=== PATIENT | female | born 1940 | race Caucasian/White ===

== ENCOUNTER 2016-07-28 12:57 | Outpatient (CLI) | payer MEDICARE, OTHER | END 2016-07-28 12:58 | disposition home or self-care (01) | DX: Z12.31 Encounter for screening mammogram for malignant neoplasm of breast (principal); Z80.3 Family history of malignant neoplasm of breast ==

== ENCOUNTER 2016-11-06 12:25 | Observation (INO) | payer MEDICARE, OTHER ==
--- NOTE | 2016-11-06 13:08 | ED Physician Documentation ---
PD HPI FOCAL NEURO - Stated complaint Stated Complaint: SPEECH DIFFICULTY - Chief complaint Chief Complaint: Neuro - History obtained from History obtained from: Patient, Family - History of Present Illness Timing - onset: How many hours ago (1) Timing - duration: Minutes (20) Timing - details: Abrupt onset Severity of deficit: Moderate Weakness: No: Face, Arm, Hand, Leg, Foot, Right, Left Numbness: No: Face, Arm, Hand, Leg, Foot, Right, Left Associated symptoms: No: Headache, Nausea / vomiting, Seizure, Syncope, Fall, Head injury, Chest pain, Neck pain, Back pain, Fever Contributing factors: positive: Anticoagulated (plavix) Baseline status: positive: A&OX3, ambulatory, indep Similar symptoms before: Has not had sx before Recently seen: Not recently seen - Additional information Additional information: difficulty with speech x 20 mins today. Now resolved. H/o CVA in the past. Review of Systems Ten Systems: 10 systems reviewed and negative Constitutional: denies: Fever, Chills Eyes: denies: Decreased vision, Photophobia Ears: denies: Ear pain Nose: denies: Rhinorrhea / runny nose, Congestion Cardiac: denies: Chest pain / pressure, Palpitations Respiratory: denies: Dyspnea, Cough, Wheezing GI: denies: Abdominal Pain, Nausea, Vomiting, Diarrhea Skin: denies: Rash Musculoskeletal: denies: Neck pain, Back pain Neurologic: reports: Difficulty speaking. 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 - Present Medications Home Medications: Ambulatory Orders Medication Instructions Recorded Confirmed Lisinopril 20 mg PO DAILY 09/26/15 11/06/16 Aspirin [Aspirin EC] 81 mg PO DAILY 11/06/16 11/06/16 Atorvastatin [Lipitor] 10 mg PO QPM 11/06/16 11/06/16 Brimonidine 0.1% Ophth Drops 1 drops LEFTEYE BID 11/06/16 11/06/16 [Alphagan P 0.1% Ophth Drops] Clopidogrel [Plavix] 75 mg PO DAILY 11/06/16 11/06/16 Dorzolamide 2% Ophth Drops 1 drops LEFTEYE BID 11/06/16 11/06/16 [Trusopt 2% Ophth Drops] Latanoprost 0.005% Ophth Drops 1 drops LEFTEYE QPM 11/06/16 11/06/16 [Xalatan Ophth Drops] Levothyroxine Sodium 50 mcg PO DAILY 11/06/16 11/06/16 - Allergies Allergies/Adverse Reactions: Allergies Allergy/AdvReac Type Severity Reaction Status Date / Time No Known Drug Allergies Allergy Verified 11/06/16 12:58 - Social History Does the pt smoke?: No Smoking Status: Never smoker Does the pt drink ETOH?: Yes Does the pt have substance abuse?: No - Immunizations Immunizations are current?: Yes PD ED PE NORMAL - Vitals Vital signs reviewed: Yes - General General: Alert and oriented X 3, No acute distress, Well developed/nourished - HEENT HEENT: PERRL, EOMI, Ears normal, Moist mucous membranes, Pharynx benign - Neck Neck: Supple, no meningeal sign, No bruit - Cardiac Cardiac: RRR, Strong equal pulses - Respiratory Respiratory: No respiratory distress, Clear bilaterally - Abdomen Abdomen: Soft, Non tender, Non distended - Back Back: No spinal TTP - Derm Derm: Warm and dry, No rash - Extremities Extremities: No edema, No calf tenderness / cord - Neuro Neuro: Alert and oriented X 3, tube builder 2-12 intact, No motor deficit, No sensory deficit - Psych Psych: Normal mood, Normal affect NIHSS - Time Time: 13:00 - Level of Consciousness Level of consciousness: (0) Alert, Keenly responsive LOC Questions: (0) Answers both Q's correct LOC Commands: (0) Performs both correctly - Gaze Best Gaze: (0) Normal - Visual Visual: (0) No loss - Facial Palsy Facial Palsy: (0) Normal, symmetrical movement - Motor Arms (both separate) Motor Arm (right): (0) No drift Motor Arm (left): (0) No drift - Motor Legs (both separate) Motor Leg (right): (0) No drift Motor Leg (left): (0) No drift - Limb Ataxia Limb Ataxia: (0) Absent - Sensory Sensory: (0) Normal - Best Language Best Language: (0) No aphasia - Dysarthria Dysarthria: (0) Normal - Extinction and Inattention (formally neg Extinction and inattention: (0) No abnormality - Total Score/Results Total Score/Result: 0 Results - Vitals Vitals: Vital Signs - 24 hr 11/06/16 11/06/16 12:30 14:58 Temperature 36.5 C Heart Rate 79 77 Respiratory 17 18 Rate Blood Pressure 168/74 H 157/80 H O2 Saturation 100 99 Oxygen O2 Source Room air - EKG (time done) 1237 Rate: Rate (enter#) (78) Rhythm: NSR [place]: Normal Intervals: Normal GA QRS: Normal Ischemia: Normal ST segments Computer interpretation: Agree with computer - Labs Labs: Laboratory Tests 11/06/16 11/06/16 11/06/16 13:35 13:35 15:05 WBC 7.9 RBC 3.86 L Hgb 12.7 Hct 37.4 MCV 96.9 MCH 33.0 H MCHC 34.0 RDW 12.9 Plt Count 246 MPV 8.2 Neut # 5.5 Lymph # 1.6 [place] # 0.6 Eos # 0.2 Baso # 0.1 Absolute Nucleated RBC 0.00 Nucleated RBCs 0.0 Sodium 141 Potassium 3.6 Chloride 106 Carbon Dioxide 28 Anion Gap 7.0 BUN 19 Creatinine 0.7 Estimated GFR (MDRD) 82 L Glucose 124 H Calcium 9.4 Total Bilirubin 0.7 AST 26 ALT 24 Alkaline Phosphatase 49 Total Protein 6.8 Albumin 4.0 Globulin 2.8 Albumin/Globulin Ratio 1.4 Lipase 27 Urine Color YELLOW Urine Clarity CLEAR Urine pH 5.5 Ur Specific [place] >=1.030 H Urine Protein NEGATIVE Urine Glucose (UA) NEGATIVE Urine Ketones NEGATIVE Urine Occult Blood NEGATIVE Urine Nitrite NEGATIVE Urine Bilirubin NEGATIVE Urine Urobilinogen 0.2 (NORMAL) Ur Leukocyte Esterase NEGATIVE Ur Microscopic Review NOT INDICATED Urine Culture Comments NOT INDICATED - Rads (name of study) head CT Radiology: Prelim report reviewed, EMP read contemporaneously, See rad report ( No clearly acute intracranial CT abnormalities. There is no evidence of hemorrhage or mass effect. No clearly acute loss of montgomery-white matter differentiation. There is a focus of hypodensity within the left external capsule and briseno radiata white matter. This probably represents a remote lacunar infarct. There is a small hyperdensity measuring 0.9 x 0.6 cm within the superomedial right orbital fossa (image 6 series 3). This is suspicious for a small intraconal mass. Most likely etiology would be a hemangioma/ lymphangioma. Non-emergent contrast-enhanced orbital MRI is recommended for further evaluation as indicated. ) PD MEDICAL DECISION MAKING - ED course Complexity details: reviewed results, re-evaluated patient, considered differential, d/w patient, d/w family ED course: Patient is a 75-year-old female who had a 20 minute episode of expressive aphasia today. Symptoms have since resolved. She is neurologically normal and at her baseline. No focal weakness or numbness. Symptoms are consistent with a TIA. No acute findings on laboratory testing or head CT. We will Place her in observation for further evaluation. Discussed the case with the hospitalist , Dr. Sorto, who accepts. This document was made in part using voice recognition software. While efforts are made to proofread this document, sound alike and grammatical errors may occur. Departure - Departure Disposition: ED Place in Observation Clinical Impression: TIA (transient ischemic attack) Qualifiers: Transient cerebral ischemia type: unspecified Qualified Code(s): G45.9 - Transient cerebral ischemic attack, unspecified Condition: Good Discharge Date/Time: 11/06/16 17:16
[2016-11-06 13:46] LABS: BASOPHILS # (AUTO) 0.1 10^3/uL (0.0-0.1); BASOPHILS % (AUTO) 0.8 %; EOSINOPHILS # (AUTO) 0.2 10^3/uL (0.0-0.7); EOSINOPHILS % (AUTO) 2.4 %; HCT - HEMATOCRIT 37.4 % (37.0-47.0); HGB - HEMOGLOBIN 12.7 g/dL (12.0-16.0); LYMPHOCYTES # (AUTO) 1.6 10^3/uL (1.5-3.5); LYMPHOCYTES % (AUTO) 20.3 %; MEAN CORPUSCULAR VOLUME 96.9 fL (81.0-99.0); MEAN PLATELET VOLUME 8.2 fL (7.9-10.8); MONOCYTES # (AUTO) 0.6 10^3/uL (0.0-1.0); MONOCYTES % (AUTO) 7.6 %; NEUTROPHILS # (AUTO) 5.5 10^3/uL (1.5-6.6); NEUTROPHILS % (AUTO) 68.9 %; RED BLOOD COUNT 3.86 10^6/uL (4.20-5.40); RED CELL DISTRIBUTION WIDTH 12.9 % (12.0-15.0); UNCORRECTED WHITE BLOOD COUNT 7.9 x10^3/uL; WHITE BLOOD COUNT 7.9 x10^3/uL (4.8-10.8)
[2016-11-06 14:01] LABS: ALBUMIN/GLOBULIN RATIO 1.4 (1.0-2.2); BILIRUBIN,TOTAL 0.7 mg/dL (0.2-1.0); CALCIUM 9.4 mg/dL (8.5-10.3); CREATININE 0.7 mg/dL (0.4-1.0); POTASSIUM 3.6 mmol/L (3.5-5.0); TOTAL PROTEIN 6.8 g/dL (6.7-8.2)
--- NOTE | 2016-11-06 14:59 | CT Report ---
EXAM: CT HEAD EXAM DATE: 11/06/2016 02:28 PM. CLINICAL HISTORY: Expressive aphasia x 20 mins. COMPARISON: None. TECHNIQUE: Multiaxial CT images were obtained from the foramen magnum to the vertex. IV contrast: Non e. Reformats: Coronal. In accordance with CT protocol optimization, one or more of the following dose reduction techniques w ere utilized for this exam: automated exposure control, adjustment of mA and/or KV based on patient s ize, or use of iterative reconstructive technique. FINDINGS: Parenchyma: There is no evidence of intraparenchymal hemorrhage. There is focal hypodensity within th e left basal ganglia and briseno radiata white matter. This likely represents remote lacunar infarct. There is no clearly acute loss of montgomery-white matter differentiation. No mass effect. No findings susp icious for mass lesion. Extraaxial Spaces: There is mild generalized volume loss. No acute extra-axial collection is seen. Ventricles: Normal in size and position. Sinuses: Imaged paranasal sinuses, orbits, and mastoids show no significant abnormality. Bones: No evidence of fracture or calvarial defect. Other: None. IMPRESSION: 1. No clearly acute intracranial CT abnormalities. There is no evidence of hemorrhage or mass effect. No clearly acute loss of montgomery-white matter differentiation. 2. There is a focus of hypodensity within the left external capsule and briseno radiata white matter. This probably represents a remote lacunar infarct. 3. There is a small hyperdensity measuring 0.9 x 0.6 cm within the superomedial right orbital fossa ( image 6 series 3). This is suspicious for a small intraconal mass. Most likely etiology would be a he mangioma/lymphangioma. Non-emergent contrast-enhanced orbital MRI is recommended for further evaluati on as indicated. [facility] Referring Provider Line: [phone] SITE ID: [id number]
[2016-11-06 16:00] LABS: BILIRUBIN,URINE NEGATIVE (NEGATIVE); PH,URINE 5.5 PH (5.0-7.5)
[2016-11-06 16:03] LABS: UA CHARGE (STRIP ONLY) YES; UR CULTURE IF IND NOT INDICATED
[2016-11-06] MEDS ORDERED: SODIUM CHLORIDE FLUSH 0.9% 10 ML SYRINGE IVP PRN (16:39)
[2016-11-06] MEDS ORDERED: ASPIRIN 325 MG TABLET PO ONE (18:00)
--- NOTE | 2016-11-06 19:23 | MRI Report ---
EXAM: MR ANGIOGRAM NECK EXAM DATE: 11/06/2016 06:15 PM. CLINICAL HISTORY: 75-year-old woman with TIA. COMPARISON: None. TECHNIQUE: Multiplanar, multisequence MRA sequences of the neck were performed. Other: None. Post-pro cessing: Multiplanar 3D MIP reconstructions. IV Contrast: None. Evaluation of arterial stenosis is b ased on a NASCET method of measurement. FINDINGS: RIGHT Common and Internal Carotid: Patent. No dissection or significant stenosis. External Carotid: Patent. No dissection or significant stenosis. Vertebral: Patent, but flow related artifact limits evaluation along the V3 segment on this noncontra st exam. No dissection or significant stenosis. LEFT Common and Internal Carotid: Patent, but irregularity at the bifurcation results in mild luminal narr owing (less than 50% by NASCET criteria). No dissection or hemodynamically significant stenosis. External Carotid: Patent. No dissection or significant stenosis. Vertebral: The origin is not well seen, likely due to artifact but stenosis cannot be excluded. The r emainder of the artery is patent, but flow related artifact limits evaluation along the V3 segment on this noncontrast exam. No dissection or significant stenosis. Other: Limited evaluation of the neck soft tissues is unremarkable. IMPRESSION: 1. Carotid arteries are patent without significant stenosis or dissection. Irregularity at the left c arotid bifurcation likely reflects underlying atherosclerotic disease. 2. The origin of the left vertebral artery is not well visualized, likely due to artifact but underly ing stenosis cannot be excluded. The V3 segments are obscured by flow related artifact. [facility] Referring Provider Line: [phone] SITE ID: [id number]
--- NOTE | 2016-11-06 19:31 | MRI Preliminary Report ---
Exam: MRI Angio Brain W/O (MRA) IMPRESSION: 1. 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 Visualized distal MCA branches are attenuated relative to the right. [facility] The above findings were discussed with Dr. Sorto by Dr. Ángel Crews at 19:29 hrs on 11/06/16. SITE ID: [id number]
--- NOTE | 2016-11-06 19:33 | MRI Report ---
EXAM MRA BRAIN EXAM DATE: 11/06/2016 06:05 PM. CLINICAL HISTORY: 75-year-old woman with TIA. COMPARISON: None. TECHNIQUE: Multiplanar, multisequence MRA sequences of the brain were performed. Other: None. Post-pr ocessing: Multiplanar 3D MIP reconstructions. IV Contrast: None. FINDINGS: RIGHT: Visualized Internal Carotid Artery: Patent without significant stenosis. No evidence of aneurysm. Anterior Cerebral Artery: Patent without significant stenosis or aneurysm. Middle Cerebral Artery: Patent without significant stenosis or aneurysm. Posterior Cerebral Artery: Patent without significant stenosis or aneurysm. The KEEL PRESS OPERATOR supplied by the p osterior communicating artery ( origin) this, a normal variant. Posterior Communicating Artery: Patent. No aneurysm. Visualized Vertebral Artery: Patent without significant stenosis. No evidence of dissection or aneury sm. LEFT: Visualized Internal Carotid Artery: Patent without significant stenosis. No evidence of aneurysm. Anterior Cerebral Artery: Patent without significant stenosis or aneurysm. Middle Cerebral Artery: M1 segment is patent, but there is abrupt truncation of the proximal temporal M2 trunk, consistent with occlusion. Flow in the visualized M2 M3 vessels is attenuated relative to the right. No aneurysm. Posterior Cerebral Artery: Patent without significant stenosis or aneurysm. The KEEL PRESS OPERATOR is primarily supp lied by the posterior communicating artery, but there is a small, patent P1 segment. Posterior Communicating Artery: Patent. No aneurysm. Visualized Vertebral Artery: Patent without significant stenosis. No evidence of dissection or aneury sm. CENTRAL: Anterior Communicating Artery: Patent. No aneurysm. Basilar: Patent without significant stenosis, dissection, or aneurysm. IMPRESSION: 1. 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 Visualized distal MCA branches are attenuated relative to the right. [facility] The above findings were discussed with Dr. Sorto by Dr. Ángel Crews at 19:29 hrs on 11/06/16. Referring Provider Line: [phone] SITE ID: [id number]
--- NOTE | 2016-11-06 19:38 | HISTORY & PHYSICAL EXAMINATION ---
Chief Complaint - Chief Complaint Chief Complaint: eexpressive aphasia History of Present Illness - Admitted From Admitted From:: emergency Department - History Obtained From History obtained from: patient - History of Present Illness HPI Comment/Other: this 75-year-old female has generally enjoyed good health. In September of 2015, she did experience TIA symptoms.she had followup with Dr. Johnson of neurology ,, in [place].she reports she was started on Plavix and aspirin. she has remained symptom free until today. Today, while at a birthday alliance party, she suddenly developed what she describes as incoherent speech. This lasted approximately 20 minutes and then resolved completely. She denies associated numbness, tingling, motor weakness,, confusion. She has been taking both Plavix andaspirin, in addition to lisinopril and Lipitor, for the last year. She reports compliance with her regimen. she was on vacation a week ago, and says she may have eaten more salt than is normal for her. She did fly on an airplane to and from [place], but denies any leg swelling. Otherwise, she denies recent fever or chills, headaches or dizziness,, new eye or ear symptoms,, dysphasia, sore throat or cough, swollen glands, chest pain or palpitations, shortness of breath, abdominal pain, nausea or vomiting, diarrhea or constipation, dysuria. past medical history: TIA, September of 2015, resolved Hypothyroidism Hypertension Hyperlipidemia Glaucoma History of hysterectomy Current medications: Brimonidine 0.1% one drop OS twice a day The Trusopt 2% one drop OS twice a dayX. Xalatan 0.005% one drop OS every afternoon Levothyroxine 50 mcg daily Plavix 75 Lisinopril 20 mg daily allergies: No known drug allergies Family history: Father had diabetes. Mother had breast grade she has no siblings. She is unaware of any strokes or cancers or heart disease in her extended family. social history: The patient lives alone. She has children in [place] and in [place]. She drinks one glass of wine per day. 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 Meds/Allgy - Home Medications Home Medications: Ambulatory Orders Medication Instructions Recorded Confirmed Lisinopril 20 mg PO DAILY 09/26/15 11/06/16 Aspirin [Aspirin EC] 81 mg PO DAILY 11/06/16 11/06/16 Atorvastatin [Lipitor] 10 mg PO QPM 11/06/16 11/06/16 Brimonidine 0.1% Ophth Drops 1 drops LEFTEYE BID 11/06/16 11/06/16 [Alphagan P 0.1% Ophth Drops] Clopidogrel [Plavix] 75 mg PO DAILY 11/06/16 11/06/16 Dorzolamide 2% Ophth Drops 1 drops LEFTEYE BID 11/06/16 11/06/16 [Trusopt 2% Ophth Drops] Latanoprost 0.005% Ophth Drops 1 drops LEFTEYE QPM 11/06/16 11/06/16 [Xalatan Ophth Drops] Levothyroxine Sodium 50 mcg PO DAILY 11/06/16 11/06/16 - Allergies Allergies/Adverse Reactions: Allergies Allergy/AdvReac Type Severity Reaction Status Date / Time No Known Drug Allergies Allergy Verified 11/06/16 12:58 Exam - Vital Signs Vital Signs: Vital Signs x48h Temp Pulse Resp BP Pulse Ox 11/06/16 17:05 36.6 C 76 18 148/66 H 97 on exam, she is a well-developed well-nourished, pleasant white female, in no acute distress. Head: Normocephalic, atraumatic. Ears: TMs and canals are clear. Eyes: Pupils are asymmetric, with the right pupil approximately 2millimeters larger. Both are reactive, round.EOMI. Anicteric. Pharynx: Is clear. Teeth are in good repair. Neck: Is supple, without bruits, lymphadenopathy, thyromegaly, JVD. Cardiac: Shows regular rate and rhythm, with normal S1 and S2, without murmurs, rubs, gallops. Lungs: Are clear to auscultation, without r, rhonchi, wheezes. Abdomen: Is soft and nontender, without obvious Bowel sounds are active. There is no guarding or rebound. Extremities: Show no cyanosis, clubbing,, edema. Pulses are intact. Neurologic: Patient is alert and oriented x3. Mood and affect are normal. Speech is fluent. Cranial nerves: Other than unequal pupils, are intact. Motor: Is symmetric and normal throughout. Cerebellar: There is minimal pronator drift on the left. Ruttil-ls-[id number] exam is intact. Zyhe-jm-tifl is intact. No tremor is noted. Sensory: He is intact to soft touch, although minimally decreased below the knees bilaterally. Deep tendon reflexes: Are brisk at the biceps, patellae,, with downgoing toes. skin exam does not show any worrisomelesions or rashes. Conclusion/Plan - Lab Results Fish Bones: 11/06/16 13:35 11/06/16 13:35 Other Lab Results: MR angiogram of the head and neck: Pulmonary report by radiology suggests occlusion of the left MCA M2 trunk, possibly acute. There is evidence of previous old CVCarotid arteries are patent without s, although there is irregularity of the left carotid bifurcation consistent with underlying ASCVD dry head CT showed no bleed. Possible left external capsule lacunar infarct. Small hyperdensity in the right orb suspicious for possible small intraconal mass. EKG showed normal sinus rhythm at a rate of 78, with no acute ischemic changes. Issues/Core Measures - Anticipated LOS Anticipated Stay Length: Less than 2 midnights - Issues Hospital Issues and Management Plan: #1. Neurologic. Patient presents with signs andsymptoms of TIA. Symptoms are currently resolved. -MRI is abnormal, and suggestive of left MCA occlusion. -Patient will be continued on Plavix and aspirin. The plain MRI of the brain is ordered,, per radiology. -We will need to touch base with her neurol -Consider increasing the dose of lipitor and lisinopril,, as tolerated . -Neuro checks and telemetry for monitoring overnight. echo cardiogram. #2. CODE STATUS:full code #3.DVT prophylaxis-subcutaneous heparin. #4. hypoThyroidism. -Check TSH. Continue levothyroxine. #5.hypertension. -Blood pressures are running a bit high, but allow permissive hypertension for tonight. After tomorrow, consider increasing the dose of li #6. Hyperlipidemia. -Check lipid panel, and consider increasing Lipitor. this visit took approximately 60 minutes, to review patient's case with AGUS Isabel , review of records, interview and examine her, and write orders.
[2016-11-06] MEDS: SODIUM CHLORIDE FLUSH 0.9% 10 ML SYRINGE IVP SCH (23:36)
[2016-11-07] MEDS ORDERED: diphenhydrAMINE 25 MG CAPSULE PO PRN (01:13)
[2016-11-07] MEDS: SODIUM CHLORIDE FLUSH 0.9% 10 ML SYRINGE IVP SCH (06:23)
[2016-11-07] MEDS ORDERED: POLYETHYLENE GLYCOL 3350 17 GM PACKET PO SCH (09:00)
--- NOTE | 2016-11-07 13:51 | MRI Preliminary Report ---
Exam: MRI Brain W/O Impression: 1. Punctate left MCA territory including left insula, left temporal lobe acute subacute ischemic griffiths ge. No hemorrhage or mass effect. Superimposed old left internal capsule, left basal ganglia hemorrha gic stroke. 2. Suspected small venous fat, right orbit can be further evaluated by dedicated orbital MRI study, h igh-resolution imaging through the orbits. Maximum dimension 1.1 cm. Orbital contents otherwise negat jay. Critical results: Preliminary findings discussed immediately with Dr. Reyes by phone on 11/07/2016 at 1344 hrs. [facility] SITE ID: [id number]
--- NOTE | 2016-11-07 13:54 | MRI Report ---
EXAM: MRI BRAIN WITHOUT CONTRAST EXAM DATE: 11/07/2016 11:50 AM. CLINICAL HISTORY: Suspected MCA clot left MCA territory. COMPARISON: Prior MRA brain, MRA neck 11/08/2016, prior CT study had 11/08/2016. TECHNIQUE: Multiplanar, multisequence T1-weighted and fluid-sensitive MR sequences of the brain were performed. Sequences optimized for routine evaluation. Other: None. IV Contrast: None. Findings: Relevant images are indicated (image number, series number). Punctate diffusion restriction left insula, left temporal lobe, also along the cortical margin left t emporal lobe some slight asymmetrical increased signal intensity left internal capsule. There is no h emorrhage or mass effect. Gradient echo imaging negative. Old left internal capsule hemorrhagic strok e. There is no significant cortical atrophy. Minimal superimposed scattered subcortical white matter disease. Ventricles not dilated. There is prominence of the superior cerebellar cistern, midbrain neg ative, pituitary, infundibulum, craniocervical junction are unremarkable. Extraocular muscles appear unremarkable. 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 Optic nerves, orbital apex, optic chiasm negative. Pituit dee dee, midbrain, cranial cervical junction, limited evaluation upper cervical cord negative. Impression: 1. Punctate left MCA territory including left insula, left temporal lobe acute subacute ischemic griffiths ge. No hemorrhage or mass effect. Superimposed old left internal capsule, left basal ganglia hemorrha gic stroke. 2. Suspected small venous fat, right orbit can be further evaluated by dedicated orbital MRI study, h igh-resolution imaging through the orbits. Maximum dimension 1.1 cm. Orbital contents otherwise negat jay. Critical results: Preliminary findings discussed immediately with Dr. Reyes by phone on 11/07/2016 at 1344 hrs. [facility] Referring Provider Line: [phone] SITE ID: [id number]
--- NOTE | 2016-11-07 14:56 | Discharge Plan ---
Discharge Plan Disposition: 01 Home, Self Care Condition: Good Prescriptions: Aspirin [Aspirin EC] 162 mg PO DAILY #1 tablet. Atorvastatin [Lipitor] 20 mg PO QPM #1 tablet Diet: Regular Activity Restrictions: Activity as Tolerated Shower Restrictions: No Driving Restrictions: No Weight Bearing: Full Weight Additional Instructions or Follow Up instructions: #1. Continue Plavix. -Increase aspirin up to 162 mg per day. -Double Lipitor/atorvastatin dose to 20 mg each day. #2. Please followup with [facility] GUSTAVO. Please nedra the #[phone] for an appointment. Or, alternatively, you can call the same number that you called last week, and let them know we are just getting out of the hospital,, and that the [facility] neurologist, Dr. Celi Bruce(?), recommended that they see you and review your scans GUSTAVO. No Smoking: If you smoke, Please STOP! Call for help.
[2016-11-07 15:54] VITALS: BP 166/83
--- NOTE | 2016-11-08 09:17 | DISCHARGE SUMMARY ---
DATE OF ADMISSION: 11/06/2016 DATE OF DISCHARGE: 11/07/2016 DISCHARGE DIAGNOSES 1. Transient ischemic attack, with evidence of tiny emboli in the left middle cerebral artery distrib ution on MRI. 2. History of transient ischemic attack in 2016. 3. Hypothyroidism. 4. Hypertension. 5. Hyperlipidemia. 6. Glaucoma. HOSPITAL COURSE: For full details on admitting data, please refer to yesterday's H and P. Briefly thi s 75-year-old female, who had a TIA 1 year ago, presented with 20 minutes of incoherent speech yester day. Her symptoms resolved about the time she arrived here. She did undergo a head CT followed by MRA of the neck and brain. This showed evidence for a left middle cerebral artery clot in the M2 branch, which did not appear to be completely occluding. The radiologist was unsure if this could be old or new so a plain MRI of the brain was ordered for today. That MRI suggested the tiny embolic strokes th at were seen today. The patient's case was reviewed with Dr. Kavon Bruce, of the [facility]. He felt that there was nothing urgent that could be done, and noted that she is already on optim al therapy of Plavix plus aspirin. He did invite her to come down to see them at the [facility] as they are starting a study soon to look at anticoagulation in patients like this, who are failing therapy. The patient was anxious to go home, so did leave earlier today with a friend. We dis cussed perhaps increasing her aspirin to 162 mg a day, continue Plavix, and double her Lipitor dose t o 20 mg a day, pending neurology evaluation. Neurology did not want us to start her on any other anti coagulation therapy at this time. On interview today, the patient says she feels completely back to normal. She feels fine. She has had no further speech deficits. She denies any weakness, numbness or tingling. She otherwise denies feve r or chills, headaches or dizziness, new eye or ear symptoms, chest pain or shortness of breath, palp itations, GI or symptoms. PHYSICAL EXAMINATION GENERAL: The patient is alert and oriented. VITAL SIGNS: Normal, although blood pressure has been a bit labile, ranging from 124-166/74-83. NECK: Supple, without obvious lymphadenopathy or JVD. CARDIOVASCULAR: Shows regular rate and rhythm. LUNGS: Clear. ABDOMEN: Soft and nontender. EXTREMITIES: No edema. NEUROLOGIC: Shows normal cranial nerve function, other than slightly unequal pupils, as noted last ni t. Motor and sensory exams appear intact today. DISCHARGE MEDICATIONS 1. The patient will increase the aspirin to 162 mg a day. 2. Lipitor increased to 20 mg every day. 3. Continue Plavix 75 mg every day. 4. Lisinopril 20 mg every day. 5. Levothyroxine 50 mcg every day. 6. Continue latanoprost, dorzolamide, and brimonidine eyedrops, as before, for her glaucoma. These ar e used in her left eye only. DIAGNOSTIC STUDIES: MR angiogram of the head and neck shows punctate left MCA territory including lef t insula, left temporal lobe, acute versus subacute ischemic change, without hemorrhage or mass effec t. There is a superimposed old left internal capsule, left basal ganglia hemorrhagic stroke. Suspecte d small venous fat, right orbit, can be further evaluated by dedicated orbital MRI, with high resolut ion imaging through the orbits. Neck MRA showed patent carotid arteries without significant stenosis. There is irregularity at the left carotid bifurcation, which likely reflects underlying atherosclero tic disease. Origin of the left vertebral artery is not well visualized. Plain MRI of the brain done this morning again shows punctate left MCA territory including left insula, left temporal lobe, acute versus subacute ischemic change. Echocardiogram preliminary report shows sinus rhythm, with moderate concentric LVH with ejection frac tion of 65% to 70%. Grade 1 diastolic dysfunction. Mild right ventricular enlargement. Contrast injec tion of saline was positive for an atrial shunt with bubbles appearing late after the Valsalva. ASSESSMENT AND PLAN 1. Neurologic. This patient presents with signs and symptoms consistent with transient ischemic attac k. She does have abnormal MRI findings consisting with ongoing small strokes. She is strongly encoura martha to follow up with the [facility] at [facility]. She was given a phone number to call to make an appointment, and that is [phone]. The doctor I spoke with today, I believe his name i s Kavon Bruce. In the meantime, she will adjust her medications as noted above. 2. Preliminary report on the echocardiogram is abnormal. This should also be followed up by either Ne urology or Cardiology. 3. There was an abnormality noted in one of her orbits on the MRI. This may also need to be followed up with a dedicated orbital MRI. 4. For her hypertension, hyperlipidemia, and hypothyroidism, she will continue her usual medications. FOLLOWUP: Should be with her primary care physician, Dr. Jaja Bass, and also with the [facility]. She promises to call them on Wednesday, and let them know that she needs an appointmen t GUSTAVO. This visit today took approximately 40 minutes to review test results, review results with Radiology and then with the patient and her friend, and then write orders. JOB #: [id number] EXT JOB #:[id number]
== END 2016-11-07 15:45 | disposition home or self-care (01) ==
LOC: ED 12:25 → MS 16:39
PROVIDERS: ADMIT Internal Medicine; ATTEND Internal Medicine
DX: I66.9 Occlusion and stenosis of unspecified cerebral artery (principal); E03.9 Hypothyroidism, unspecified; I10 Essential (primary) hypertension; E78.5 Hyperlipidemia, unspecified; H40.9 Unspecified glaucoma; Z79.02 Long term (current) use of antithrombotics/antiplatelets; Z79.82 Long term (current) use of aspirin; Z79.899 Other long term (current) drug therapy
CPT/HCPCS: 36415; 70450; 70544; 70547; 70551; 80053; 81003; 83690; 85025; 93010; 93306; 99284; 99285; A9270; G0378; 81001; 87086

== ENCOUNTER 2017-02-10 07:22 | Outpatient (CLI) | payer MEDICARE, OTHER ==
[2017-02-10 13:09] LABS: ALBUMIN/GLOBULIN RATIO 1.6 (1.0-2.2); BILIRUBIN,TOTAL 0.9 mg/dL (0.2-1.0); BUN - BLOOD UREA NITROGEN 17 mg/dL (6-20); CALCIUM 9.5 mg/dL (8.5-10.3); CARBON DIOXIDE - CO2 29 mmol/L (21-32); CHLORIDE 106 mmol/L (101-111); CHOL/HDL RATIO 1.7 (<4.4); CHOLESTEROL 181 mg/dL; CREATININE 0.8 mg/dL (0.4-1.0); GFR - MDRD 70 (>89); GLUCOSE 97 mg/dL (70-100); HDL CHOLESTEROL 104 mg/dL; LDL/HDL RATIO 0.6 (<4.4); SODIUM 142 mmol/L (135-145); TOTAL PROTEIN 6.7 g/dL (6.7-8.2); TRIGLYCERIDES 77 mg/dL; VLDL CHOLESTEROL 15 mg/dL
== END 2017-02-10 07:23 ==
LOC: LAB.WCP 07:22
PROVIDERS: ATTEND Family Medicine
DX: E78.5 Hyperlipidemia, unspecified (principal)
CPT/HCPCS: 36415; 80053; 80061

== ENCOUNTER 2017-07-28 07:28 | Outpatient (CLI) | payer MEDICARE, OTHER ==
[2017-07-28 12:26] LABS: BASOPHILS # (AUTO) 0.1 10^3/uL (0.0-0.1); BASOPHILS % (AUTO) 0.8 %; EOSINOPHILS # (AUTO) 0.2 10^3/uL (0.0-0.7); EOSINOPHILS % (AUTO) 3.2 %; HGB - HEMOGLOBIN 13.4 g/dL (12.0-16.0); LYMPHOCYTES # (AUTO) 2.1 10^3/uL (1.5-3.5); LYMPHOCYTES % (AUTO) 31.7 %; MEAN CORPUSCULAR HEMOGLOBIN 33.1 pg (27.0-31.0); MEAN CORPUSCULAR VOLUME 97.3 fL (81.0-99.0); MEAN PLATELET VOLUME 8.3 fL (7.9-10.8); MONOCYTES # (AUTO) 0.4 10^3/uL (0.0-1.0); NEUTROPHILS # (AUTO) 3.9 10^3/uL (1.5-6.6); NEUTROPHILS % (AUTO) 58.3 %; PLT - PLATELET COUNT 253 10^3/uL (130-450); RED BLOOD COUNT 4.05 10^6/uL (4.20-5.40); RED CELL DISTRIBUTION WIDTH 13.2 % (12.0-15.0); WHITE BLOOD COUNT 6.7 x10^3/uL (4.8-10.8)
[2017-07-28 13:34] LABS: THYROID STIMULATING HORMONE 3.05 uIU/mL (0.34-5.60)
[2017-07-28 13:36] LABS: FREE T4 (FREE THYROXINE) 0.87 ng/dL (0.58-1.64)
[2017-07-28 13:37] LABS: ALBUMIN 4.1 g/dL (3.2-5.5); ALBUMIN/GLOBULIN RATIO 1.4 (1.0-2.2); ALKALINE PHOSPHATASE 50 IU/L (42-121); ALT ALANINE AMINOTRANSFERASE 33 IU/L (10-60); AST ASPARTATE AMINOTRANSFERASE 29 IU/L (10-42); BILIRUBIN,TOTAL 0.8 mg/dL (0.2-1.0); BUN - BLOOD UREA NITROGEN 21 mg/dL (6-20); CALCIUM 9.2 mg/dL (8.5-10.3); CARBON DIOXIDE - CO2 27 mmol/L (21-32); CHLORIDE 104 mmol/L (101-111); CHOL/HDL RATIO 1.8 (<4.4); CHOLESTEROL 199 mg/dL; CREATININE 0.7 mg/dL (0.4-1.0); GFR - MDRD 82 (>89); GLUCOSE 107 mg/dL (70-100); HDL CHOLESTEROL 110 mg/dL; LDL CHOLESTEROL,CALCULATED 73 mg/dL; LDL/HDL RATIO 0.7 (<4.4); SODIUM 137 mmol/L (135-145); VLDL CHOLESTEROL 16 mg/dL
== END 2017-07-28 07:29 | disposition home or self-care (01) ==
LOC: LAB.WCP 07:28
PROVIDERS: ATTEND Family Medicine
DX: I10 Essential (primary) hypertension (principal); E78.5 Hyperlipidemia, unspecified; E03.9 Hypothyroidism, unspecified
CPT/HCPCS: 36415; 80053; 80061; 83721; 84439; 84443; 84481; 85025

== ENCOUNTER 2017-08-09 08:35 | Outpatient (CLI) | payer MEDICARE, OTHER ==
--- NOTE | 2017-08-10 17:50 | Mammography Report ---
DATE OF SERVICE: 08/09/2017 DIGITAL SCREENING MAMMOGRAM: 08/09/2017 CLINICAL INDICATION: A 76-year-old with family history of breast cancer for screening. COMPARISON: 07/2016, 06/2015, 04/2014, 04/2013, 04/2012, 10/2010, 09/2009. TECHNIQUE: Routine CC and MLO projections as well as bilateral laterally exaggerated craniocaudal views were obtained of the breasts. FINDINGS: The breasts demonstrate heterogeneously dense fibroglandular parenchyma bilaterally. Coarse and punctate, typically benign calcifications are present. No suspicious masses, clustered microcalcifications, or regions of architectural distortion are identified. IMPRESSION: BENIGN FINDINGS. RECOMMENDATIONS: Routine annual screening unless otherwise clinically indicated. BIRADS category 2 benign findings. STANDARD QUALIFYING STATEMENTS 1. This examination was reviewed with the aid of Computed-Aided Detection (CAD). 2. A negative or benign imaging report should not delay biopsy if clinically suspicious findings are present. Consider surgical consultation if warranted. More than 5% of cancers are not identified by imaging. 3. Dense breasts may obscure an underlying neoplasm. TD: 08/10/2017 17:49
== END 2017-08-09 08:36 | disposition home or self-care (01) ==
LOC: DI 08:35
PROVIDERS: ATTEND Family Medicine
DX: Z12.31 Encounter for screening mammogram for malignant neoplasm of breast (principal); Z80.3 Family history of malignant neoplasm of breast
CPT/HCPCS: 77067

== ENCOUNTER 2018-02-21 08:00 | Outpatient (CLI) | payer MEDICARE, OTHER ==
[2018-02-21 12:31] LABS: BASOPHILS # (AUTO) 0.1 10^3/uL (0.0-0.1); BASOPHILS % (AUTO) 1.3 %; EOSINOPHILS # (AUTO) 0.2 10^3/uL (0.0-0.7); EOSINOPHILS % (AUTO) 2.9 %; LYMPHOCYTES # (AUTO) 1.6 10^3/uL (1.5-3.5); LYMPHOCYTES % (AUTO) 28.1 %; MEAN CORPUSCULAR HGB CONC 34.4 g/dL (32.0-36.0); MEAN CORPUSCULAR VOLUME 98.9 fL (81.0-99.0); MEAN PLATELET VOLUME 8.3 fL (7.9-10.8); MONOCYTES # (AUTO) 0.5 10^3/uL (0.0-1.0); MONOCYTES % (AUTO) 8.8 %; NEUTROPHILS # (AUTO) 3.4 10^3/uL (1.5-6.6); NEUTROPHILS % (AUTO) 58.9 %; PLT - PLATELET COUNT 262 10^3/uL (130-450); RED BLOOD COUNT 3.82 10^6/uL (4.20-5.40); RED CELL DISTRIBUTION WIDTH 13.5 % (12.0-15.0); WHITE BLOOD COUNT 5.8 x10^3/uL (4.8-10.8)
[2018-02-21 12:48] LABS: ALBUMIN 3.9 g/dL (3.2-5.5); ALBUMIN/GLOBULIN RATIO 1.3 (1.0-2.2); ALKALINE PHOSPHATASE 57 IU/L (42-121); ALT ALANINE AMINOTRANSFERASE 24 IU/L (10-60); AST ASPARTATE AMINOTRANSFERASE 23 IU/L (10-42); BILIRUBIN,TOTAL 0.9 mg/dL (0.2-1.0); BUN - BLOOD UREA NITROGEN 19 mg/dL (6-20); CARBON DIOXIDE - CO2 23 mmol/L (21-32); CHLORIDE 112 mmol/L (101-111); CHOL/HDL RATIO 1.8 (<4.4); CHOLESTEROL 165 mg/dL; CREATININE 0.8 mg/dL (0.4-1.0); GFR - MDRD 70 (>89); GLUCOSE 105 mg/dL (70-100); HDL CHOLESTEROL 94 mg/dL; LDL CHOLESTEROL,CALCULATED 60 mg/dL; LDL/HDL RATIO 0.6 (<4.4); SODIUM 142 mmol/L (135-145); TOTAL PROTEIN 6.8 g/dL (6.7-8.2); VLDL CHOLESTEROL 11 mg/dL
== END 2018-02-21 08:01 | disposition home or self-care (01) ==
LOC: LAB.WCP 08:00
PROVIDERS: ATTEND Family Medicine
DX: I10 Essential (primary) hypertension (principal); E78.5 Hyperlipidemia, unspecified; E03.9 Hypothyroidism, unspecified
CPT/HCPCS: 36415; 80053; 80061; 83721; 84443; 85025

== ENCOUNTER 2018-06-03 08:00 | Outpatient (CLI) | payer MEDICARE, OTHER ==
[2018-06-03 12:59] LABS: BASOPHILS # (AUTO) 0.1 10^3/uL (0.0-0.1); BASOPHILS % (AUTO) 1.1 %; EOSINOPHILS # (AUTO) 0.1 10^3/uL (0.0-0.7); EOSINOPHILS % (AUTO) 2.6 %; HGB - HEMOGLOBIN 12.9 g/dL (12.0-16.0); LYMPHOCYTES # (AUTO) 1.5 10^3/uL (1.5-3.5); LYMPHOCYTES % (AUTO) 26.7 %; MEAN CORPUSCULAR HEMOGLOBIN 32.9 pg (27.0-31.0); MEAN CORPUSCULAR HGB CONC 33.8 g/dL (32.0-36.0); MEAN CORPUSCULAR VOLUME 97.4 fL (81.0-99.0); MONOCYTES # (AUTO) 0.5 10^3/uL (0.0-1.0); NEUTROPHILS # (AUTO) 3.5 10^3/uL (1.5-6.6); NEUTROPHILS % (AUTO) 60.6 %; PLT - PLATELET COUNT 273 10^3/uL (130-450); RED BLOOD COUNT 3.91 10^6/uL (4.20-5.40); WHITE BLOOD COUNT 5.7 x10^3/uL (4.8-10.8)
[2018-06-03 13:12] LABS: THYROID STIMULATING HORMONE 1.75 uIU/mL (0.34-5.60)
[2018-06-03 13:14] LABS: FREE T4 (FREE THYROXINE) 0.86 ng/dL (0.58-1.64)
[2018-06-03 13:15] LABS: ALBUMIN/GLOBULIN RATIO 1.3 (1.0-2.2); BILIRUBIN,TOTAL 0.4 mg/dL (0.2-1.0); CALCIUM 9.3 mg/dL (8.5-10.3); CREATININE 0.7 mg/dL (0.4-1.0); TOTAL PROTEIN 7.1 g/dL (6.7-8.2)
[2018-06-03 14:10] LABS: FOLATE > 49.60 ng/mL (5.90 - >24.8)
== END 2018-06-03 23:59 | disposition home or self-care (01) ==
LOC: LAB.WCP 08:00
PROVIDERS: ATTEND Family Medicine
DX: I10 Essential (primary) hypertension (principal); E03.9 Hypothyroidism, unspecified; G62.9 Polyneuropathy, unspecified
CPT/HCPCS: 36415; 80053; 82607; 82746; 84439; 84443; 84481; 85025

== ENCOUNTER 2018-06-15 07:02 | Outpatient (CLI) | payer MEDICARE, OTHER ==
--- NOTE | 2018-06-15 12:58 | Ultrasound Report ---
Reason: PERIPHERAL NEUROPATHY,HYPERTENSIONBENIGN ESSENTIAL Procedure Date: 06/15/2018 Accession Number: [id number] / [id number] Procedure: US - Ankle Brachial Index CPT Code: FULL RESULT: EXAM: BILATERAL ANKLE/BRACHIAL INDEX EXAM DATE: 06/15/2018 07:53 AM. CLINICAL HISTORY: Peripheral neuropathy, hypertension benign essential. COMPARISON: None. TECHNIQUE: A blood pressure cuff used to evaluate the arterial pressures in the arms and ankle. Arterial duplex examination was then performed of the bilateral akrog-dzz-nhug arteries, anterior tibial, posterior tibial and peroneal artery as well as dorsalis pedis artery on both sides. FINDINGS: Normal triphasic waveforms are demonstrated by spectral Doppler in the bilateral anterior tibial, posterior tibial and peroneal arteries as well as the bilateral dorsalis pedis arteries. The following peak systolic velocities are recorded in centimeters per second: Right: Anterior tibial artery: 38 Posterior tibial artery: 48 Peroneal artery: 45 Dorsalis pedis artery: 28 Left: Anterior tibial artery: 41 Posterior tibial artery: 39 Peroneal artery: 30 Dorsalis pedis artery: 65 Pressures are peak systolic: Brachial pressure: Right brachial artery: 148 mmHg Left brachial artery: 149 mmHg Right ankle pressures: Posterior tibial artery: 161 mmHg, index 1.09 Left ankle pressures: Posterior tibial artery: 162 mmHg, index 1.09 IMPRESSION: 1. Right ankle/brachial index: 1.09. 2. Left ankle/brachial index: 1.09. 3. Preserved 3-vessel supply with normal triphasic flow to the bilateral dorsalis pedis arteries. ANKLE/BRACHIAL INDEX REFERENCE STANDARDS 1.0-1.4: Normal 0.90-0.99: Borderline < 0.9: Abnormal RADIA
== END 2018-06-15 07:03 | disposition home or self-care (01) ==
LOC: DI 07:02
PROVIDERS: ATTEND Family Medicine
DX: G62.9 Polyneuropathy, unspecified (principal); I10 Essential (primary) hypertension; E03.9 Hypothyroidism, unspecified
CPT/HCPCS: 93922

== ENCOUNTER 2020-05-22 08:00 | Outpatient (CLI) | payer MEDICARE, OTHER ==
[2020-05-22 12:06] LABS: BASOPHILS # (AUTO) 0.1 10^3/uL (0.0-0.1); BASOPHILS % (AUTO) 0.8 %; EOSINOPHILS # (AUTO) 0.1 10^3/uL (0.0-0.7); EOSINOPHILS % (AUTO) 1.2 %; HGB - HEMOGLOBIN 13.3 g/dL (12.0-16.0); LYMPHOCYTES # (AUTO) 1.3 10^3/uL (1.5-3.5); LYMPHOCYTES % (AUTO) 14.4 %; MEAN CORPUSCULAR VOLUME 100.2 fL (81.0-99.0); MEAN PLATELET VOLUME 9.9 fL (7.9-10.8); MONOCYTES # (AUTO) 0.5 10^3/uL (0.0-1.0); MONOCYTES % (AUTO) 5.9 %; NEUTROPHILS # (AUTO) 6.9 10^3/uL (1.5-6.6); NEUTROPHILS % (AUTO) 77.4 %; PLT - PLATELET COUNT 283 10^3/uL (130-450); RED BLOOD COUNT 4.15 10^6/uL (4.20-5.40); RED CELL DISTRIBUTION WIDTH 12.8 % (12.0-15.0)
[2020-05-22 12:40] LABS: ALBUMIN 4.2 g/dL (3.2-5.5); ALBUMIN/GLOBULIN RATIO 1.6 (1.0-2.2); ALKALINE PHOSPHATASE 56 IU/L (42-121); ALT ALANINE AMINOTRANSFERASE 20 IU/L (10-60); AST ASPARTATE AMINOTRANSFERASE 24 IU/L (10-42); BUN - BLOOD UREA NITROGEN 18 mg/dL (6-20); CALCIUM 9.4 mg/dL (8.5-10.3); CARBON DIOXIDE - CO2 30 mmol/L (21-32); CHLORIDE 104 mmol/L (101-111); CHOLESTEROL 222 mg/dL; CREATININE 0.9 mg/dL (0.4-1.0); GLUCOSE 96 mg/dL (70-100); HDL CHOLESTEROL > 405 mg/dL; LDL CHOLESTEROL,CALCULATED -195 mg/dL; SODIUM 141 mmol/L (135-145); TOTAL PROTEIN 6.9 g/dL (6.7-8.2); VLDL CHOLESTEROL 12 mg/dL
== END 2020-05-22 23:59 | disposition home or self-care (01) ==
LOC: LAB.WCP 08:00
PROVIDERS: ATTEND Physician Assistant
DX: I10 Essential (primary) hypertension (principal); E78.5 Hyperlipidemia, unspecified; E03.9 Hypothyroidism, unspecified
CPT/HCPCS: 36415; 80053; 80061; 83721; 84443; 85025

== ENCOUNTER 2020-07-12 08:35 | Outpatient (CLI) | payer MEDICARE, OTHER ==
[2020-07-12 12:58] LABS: CHOL/HDL RATIO 1.8 (<4.4); CHOLESTEROL 236 mg/dL; HDL CHOLESTEROL 131 mg/dL; LDL CHOLESTEROL,CALCULATED 89 mg/dL; LDL/HDL RATIO 0.7 (<4.4); VLDL CHOLESTEROL 16 mg/dL
--- OUTSIDE RECORDS SUMMARY | 2020-07-17 01:29 | EXTERNAL MEDICAL SUMMARY RPT | Continuity of Care Document ---
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 Unavailable [place] Unavailable Unavailable PA-C Unavailable Unavailable UMAÑA Unavailable Unavailable Problems date description facility 2020-05-22 00:00 HYPOTHYROIDISM, UNSPECIFIED [facility] 2020-05-22 00:00 HYPERLIPIDEMIA, UNSPECIFIED [facility] 2020-05-22 00:00 ESSENTIAL (PRIMARY) [facility] HYPERTENSION 2020-05-22 00:00:00 TSH WITH REFLEX TO FT4 [facility] 2020-05-22 00:00:00 Asymptomatic postmenopausal [facility] status (age-related) (natural) [facility] 2020-05-22 00:00:00 [facility] 2020-05-22 00:00:00 LIPIDS SCREEN [facility] 2020-05-22 00:00:00 [facility]Diff[facility] 2020-05-22 00:00:00 Asymptomatic menopausal state [facility] 2020-05-22 00:00:00 Personal history of other [facility] malignant neoplasm of skin [facility] 2020-05-22 00:00:00 Health[facility]related behavior [facility] [place] [facility] 2020-05-22 00:00:[facility] 2020-05-22 00:00:00 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 [facility] 2020-05-22 00:00:00 Alcohol use [facility] 2020-05-22 00:00:00 Tobacco smoking status [facility] [place] [facility] 2020-05-22 00:00:00 COMPREHENSIVE METABOLIC PANEL [facility] [place] [facility] 2020-05-22 00:00:00 [facility] [place] [facility] 2020-05-22 00:00:00 Tobacco use and exposure [facility] [place] [facility] 2020-05-22 00:00:00 Never smoker [facility] Prim dee ede [facility] [place] [facility] 2020-05-22 00:00:00 Postmenopausal state [facility] [place] [facility] 2020-05-22 08:00 HYPOTHYROIDISM, UNSPECIFIED [facility] 2020-05-22 08:00 HYPERLIPIDEMIA, UNSPECIFIED [facility] 2020-05-22 08:00 ESSENTIAL (PRIMARY) [facility] HYPERTENSION 2020-07-02 00:00:00 LIPIDS SCREEN [facility] Prim de[facility] de[facility] [place] [facility] 2020-07-12 08:35 HYPERLIPIDEMIA, UNSPECIFIED [facility] Allergies date description facility ADHESIVE [facility] No Known Drug Allergies [facility] Procedures date description facility 2020-05-22 00:00:00 TSH WITH REFLEX TO FT4 [facility] [place] [facility] date description facility 2020-05-22 00:00:00 COMPREHENSIVE METABOLIC PANEL [facility] [place] [facility] date description facility 2020-05-22 00:00:00 LIPIDS SCREEN [facility] de[facility] [place] [facility] date description facility 2020-05-22 00:00:00 CBC W/Diff/Plt [facility] [place] [facility] date description facility 2020-05-22 00:00:00 [facility] [place] [facility] date description facility 2020-05-22 00:00:00 TSH WITH REFLEX TO FT4 [facility] [place] [facility] date description facility 2020-05-22 00:00:00 COMPREHENSIVE METABOLIC PANEL [facility] [place] [facility] date description facility 2020-05-22 00:00:00 LIPIDS SCREEN [facility] [place] [facility] date description facility 2020-05-22 00:00:00 CBC W/Diff/Plt [facility] [place] [facility] date description facility 2020-05-22 00:00:00 [facility] [place] [facility] date description facility 2020-07-02 00:00:00 LIPIDS SCREEN [facility] [place] [facility] date description facility 2020-07-02 00:00:00 [facility] [place] [facility] Results Social History date description facility 2020-05-22 00:00:00 Never smoker [facility] [place] [facility] Social History date description facility 2020-05-22 00:00:00 Never smoker [facility] [place] [facility] date description facility [id number]
== END 2020-07-12 08:36 | disposition home or self-care (01) ==
LOC: LAB.N 08:35
PROVIDERS: ATTEND Physician Assistant Medical
DX: E78.5 Hyperlipidemia, unspecified (principal)
CPT/HCPCS: 36415; 80061; 83721

== ENCOUNTER 2020-08-26 10:47 | Outpatient (CLI) | payer MEDICARE, OTHER ==
--- NOTE | 2020-08-26 11:37 | DEXA Report ---
PROCEDURE: Dexa Spine and/or Hip INDICATIONS: POST MENOPAUSAL TECHNIQUE: Dual energy x-ray absorptiometry (DXA) was performed on a [facility]. Regions measur ed are the AP Spine, femoral neck, and if needed forearm. COMPARISON: None. FINDINGS: Lumbar Spine: Bone Mineral Density 0.993 g/cm/cm,T score -1.6 Left Femoral Neck: Bone Mineral Density 0.920 g/cm/cm, T score -0.7 (T score greater or equal to -1.0: NORMAL) (T score from -1.1 to -2.4: OSTEOPENIA) (T score less than or equal to -2.5 to: OSTEOPOROSIS) Impression: Osteopenia. Patients with diagnosis of osteoporosis or osteopenia should have regular bone mineral density assess ment. For those eligible for Medicare, routine testing is allowed once every 2 years. Testing frequ ency can be increased for patients who have rapidly progressing disease or for those who are receivin g medical therapy to restore bone mass. Reviewed by: Hardy Rodriguez MD on 08/26/2020 11:36 AM PST Approved by: Hardy Rodriguez MD on 08/26/2020 11:36 AM PST Station ID: [id number]
== END 2020-08-26 10:48 | disposition home or self-care (01) ==
LOC: DI 10:47
PROVIDERS: ATTEND Physician Assistant
DX: M85.89 Other specified disorders of bone density and structure, multiple sites (principal); Z78.0 Asymptomatic menopausal state